=== PATIENT | female | born 1955 | race Native Hawaiian/Other Pacific Islander ===

== ENCOUNTER 2018-04-23 12:36 | Outpatient (CLI) | payer OTHER | END 2018-04-23 20:42 | disposition home or self-care (01) | LOC: US 12:36 | DX: R60.0 Localized edema (principal); M54.12 Radiculopathy, cervical region ==

== ENCOUNTER 2018-07-16 10:07 | Outpatient (CLI) | payer OTHER | END 2018-07-16 19:45 | disposition home or self-care (01) | LOC: RAD 10:07 | DX: M54.5 Low back pain (principal) ==

== ENCOUNTER 2018-09-05 16:59 | Outpatient (CLI) | payer OTHER | END 2018-09-05 21:56 | disposition home or self-care (01) | LOC: RAD 16:59 | DX: M06.4 Inflammatory polyarthropathy (principal); M25.551 Pain in right hip; M25.552 Pain in left hip ==

== ENCOUNTER 2019-03-27 18:31 | Emergency (ER) | payer OTHER ==
[~2019-03-27] VITALS: Ht 170.2 cm; Wt 85.7 kg
[2019-03-27 19:29] LABS: PLATELET COUNT 254 K/uL (152-353)
[2019-03-27 20:20] LABS: POTASSIUM 3.8 mmol/L (3.6-5.2)
[2019-03-27 23:30] VITALS: BP 138/92; TEMP 98.1
== END 2019-03-27 23:40 | disposition home or self-care (01) ==
LOC: ED 18:31
PROVIDERS: Emergency Medicine Emergency Medical Services
DX: A04.5 Campylobacter enteritis (principal); R19.7 Diarrhea, unspecified; R10.30 Lower abdominal pain, unspecified
CPT/HCPCS: 80053; 83630; 85027; 87015; 87045; 87899; 99283; Q9963

== ENCOUNTER 2019-09-11 17:52 | Emergency (ER) | payer OTHER ==
[~2019-09-11] VITALS: Ht 170.2 cm; Wt 87.5 kg
[2019-09-11 19:12] LABS: PLATELET COUNT 233 K/uL (152-353)
[2019-09-11 19:17] LABS: POTASSIUM 3.8 mmol/L (3.6-5.2)
[2019-09-11 20:20] VITALS: BP 147/67; TEMP 99
== END 2019-09-11 20:20 | disposition home or self-care (01) ==
LOC: ED 17:52
PROVIDERS: Emergency Medicine
DX: S22.31XA Fracture of one rib, right side, initial encounter for closed fracture (principal); S20.211A Contusion of right front wall of thorax, initial encounter; W17.89XA Other fall from one level to another, initial encounter; Y92.098 Other place in other non-institutional residence as the place of occurrence of the external cause
CPT/HCPCS: 36415; 80053; 82550; 82553; 84484; 85027; 93005; 99283

== ENCOUNTER 2020-04-30 07:34 | Outpatient (CLI) | payer OTHER ==
[~2020-04-30] VITALS: Ht 170.2 cm; Wt 92.1 kg
== END 2020-04-30 21:46 | disposition home or self-care (01) ==
LOC: NM 07:34
DX: R07.89 Other chest pain (principal)
CPT/HCPCS: A9500; J2785

== ENCOUNTER 2020-07-17 09:58 | Outpatient (CLI) | payer OTHER | END 2020-07-17 19:29 | disposition home or self-care (01) | LOC: US 09:58 | PROVIDERS: ATTEND Nurse Practitioner Family | DX: N63.0 Unspecified lump in unspecified breast (principal) ==

== ENCOUNTER 2020-07-31 07:36 | Outpatient (CLI) | payer OTHER | END 2020-07-31 18:53 | disposition home or self-care (01) | LOC: RAD 07:36 | PROVIDERS: ATTEND Nurse Practitioner Family | DX: N63.20 Unspecified lump in the left breast, unspecified quadrant (principal) ==

== ENCOUNTER 2020-08-06 16:14 | Outpatient (CLI) | payer OTHER ==
[2020-08-06 17:00] LABS: PLATELET COUNT 233 K/uL (152-353)
[2020-08-06 17:15] LABS: POTASSIUM 4.5 mmol/L (3.6-5.2)
== END 2020-08-06 21:32 | disposition home or self-care (01) ==
LOC: LABW 16:14
PROVIDERS: ATTEND Surgery
DX: N63.20 Unspecified lump in the left breast, unspecified quadrant (principal); Z79.899 Other long term (current) drug therapy
CPT/HCPCS: 36415; 80053; 85027

== ENCOUNTER 2020-08-12 14:56 | Outpatient (CLI) | payer OTHER | END 2020-08-12 22:17 | disposition home or self-care (01) | LOC: MAMMO 14:56 | PROVIDERS: ATTEND Nurse Practitioner Family | DX: N63.20 Unspecified lump in the left breast, unspecified quadrant (principal); N64.59 Other signs and symptoms in breast ==

== ENCOUNTER 2020-08-19 17:16 | Emergency (ER) | payer OTHER ==
[~2020-08-19] VITALS: Ht 170.2 cm; Wt 92.1 kg
[2020-08-19 17:59] LABS: PLATELET COUNT 267 K/uL (152-353)
[2020-08-19 18:12] LABS: POTASSIUM 3.9 mmol/L (3.6-5.2); SODIUM 139 mmol/L (136-145)
[2020-08-19 21:30] VITALS: BP 99/45; TEMP 98.3
== END 2020-08-19 21:30 | disposition home or self-care (01) ==
LOC: ED 17:16
PROVIDERS: Emergency Medicine Emergency Medical Services
DX: R07.89 Other chest pain (principal); Z98.890 Other specified postprocedural states
CPT/HCPCS: 80053; 83880; 84484; 85027; 85379; 85610; 87040; 93005; 96360; 96361; 96365; 96372; 96375; 96376; 99284; J0696; J1200; J1650; J2270; J2405; J2930; J3490

== ENCOUNTER 2020-12-12 12:53 | Emergency (ER) | payer OTHER ==
[~2020-12-12] VITALS: Ht 170.2 cm; Wt 98.0 kg
[2020-12-12 12:56] VITALS: TEMP 98.4
[2020-12-12 13:23] LABS: PLATELET COUNT 230 K/uL (152-353)
[2020-12-12 13:38] LABS: POTASSIUM 4.4 mmol/L (3.6-5.2); SODIUM 141 mmol/L (136-145)
[2020-12-12 13:42] LABS: PARTIAL THROMBOPLASTIN TIME 25.5 SECONDS (24.5-33.6)
[2020-12-12 15:07] VITALS: BP 157/63
== END 2020-12-12 15:07 | disposition home or self-care (01) ==
LOC: ED 12:53
PROVIDERS: Hospitalist
DX: R07.89 Other chest pain (principal); G62.89 Other specified polyneuropathies; R06.02 Shortness of breath
CPT/HCPCS: 80053; 82550; 83880; 84484; 85027; 85610; 85730; 93005; 99283

== ENCOUNTER 2021-01-27 14:27 | Outpatient (CLI) | payer OTHER | END 2021-01-27 21:13 | disposition home or self-care (01) | LOC: US 14:27 | PROVIDERS: ATTEND Internal Medicine | DX: M79.605 Pain in left leg (principal); M79.604 Pain in right leg; I73.9 Peripheral vascular disease, unspecified ==

== ENCOUNTER 2021-03-03 08:16 | Outpatient (CLI) | payer OTHER | END 2021-03-03 22:09 | disposition home or self-care (01) | LOC: RESP 08:16 | PROVIDERS: ATTEND Internal Medicine Cardiovascular Disease | DX: R06.09 Other forms of dyspnea (principal); I73.9 Peripheral vascular disease, unspecified ==

== ENCOUNTER 2021-03-11 07:37 | Outpatient (CLI) | payer OTHER ==
[~2021-03-11] VITALS: Ht 167.6 cm; Wt 102.1 kg
== END 2021-03-11 19:05 | disposition home or self-care (01) ==
LOC: NM 07:37
PROVIDERS: ATTEND Internal Medicine Cardiovascular Disease
DX: I25.118 Atherosclerotic heart disease of native coronary artery with other forms of angina pectoris (principal)
CPT/HCPCS: A9500; J2785

== ENCOUNTER 2021-06-30 13:32 | Outpatient (CLI) | payer OTHER | END 2021-06-30 22:38 | disposition home or self-care (01) | LOC: US 13:32 | PROVIDERS: ATTEND Nurse Practitioner | DX: M79.662 Pain in left lower leg (principal) ==

== ENCOUNTER 2021-09-19 07:36 | Emergency (ER) | payer OTHER ==
[~2021-09-19] VITALS: Ht 170.2 cm; Wt 99.8 kg
[2021-09-19 07:44] VITALS: TEMP 100
[2021-09-19 08:50] LABS: PLATELET COUNT 191 K/uL (152-353)
[2021-09-19 09:03] LABS: POTASSIUM 3.8 mmol/L (3.6-5.2)
[2021-09-19 10:00] VITALS: BP 122/64
== END 2021-09-19 10:10 | disposition home or self-care (01) ==
LOC: ED 07:36
PROVIDERS: Emergency Medicine Emergency Medical Services
DX: R07.89 Other chest pain (principal); J20.9 Acute bronchitis, unspecified
CPT/HCPCS: 80053; 84484; 85027; 93005; 99284

== ENCOUNTER 2021-09-22 17:18 | Emergency (ER) | payer OTHER ==
[~2021-09-22] VITALS: Ht 170.2 cm; Wt 99.8 kg
[2021-09-22 18:43] VITALS: BP 116/71; TEMP 99.1
== END 2021-09-22 18:43 | disposition home or self-care (01) ==
LOC: ED 17:18
DX: J06.9 Acute upper respiratory infection, unspecified (principal); J40 Bronchitis, not specified as acute or chronic
CPT/HCPCS: 87502; 87651; 99283

== ENCOUNTER 2021-09-27 18:23 | Emergency (ER) | payer OTHER ==
[~2021-09-27] VITALS: Ht 170.2 cm; Wt 93.0 kg
[2021-09-27 19:08] LABS: PLATELET COUNT 260 K/uL (152-353)
[2021-09-27 19:16] LABS: POTASSIUM 3.6 mmol/L (3.6-5.2)
[2021-09-27 19:23] LABS: PARTIAL THROMBOPLASTIN TIME 25.9 SECONDS (24.5-33.6)
[2021-09-27 20:32] VITALS: BP 148/76; TEMP 98.5
== END 2021-09-27 20:32 | disposition home or self-care (01) ==
LOC: ED 18:23
PROVIDERS: Hospitalist
DX: J18.9 Pneumonia, unspecified organism (principal); Z20.822 Contact with and (suspected) exposure to COVID-19
CPT/HCPCS: 36415; 80053; 82550; 83880; 84484; 85027; 85610; 85730; 87635; 93005; 96365; 96375; 99284; J0696; J2930; U0003

== ENCOUNTER 2021-11-20 11:07 | Outpatient (CLI) | payer OTHER | END 2021-11-20 19:43 | disposition home or self-care (01) | LOC: LAB 11:07 | PROVIDERS: ATTEND Internal Medicine | DX: R05.8 Other specified cough (principal) | CPT/HCPCS: 87070; 87205 ==

== ENCOUNTER 2022-02-04 11:06 | Outpatient (CLI) | payer OTHER ==
[~2022-02-04 11:06] MED LIST: AMOX875T8 PO
[2022-02-04 11:19] LABS: PLATELET COUNT 237 K/uL (152-353)
[2022-02-04 11:25] LABS: POTASSIUM 4.4 mmol/L (3.6-5.2)
[2022-02-04 11:53] LABS: PARTIAL THROMBOPLASTIN TIME 26.6 SECONDS (24.5-33.6)
== END 2022-02-04 20:28 | disposition home or self-care (01) ==
LOC: LABW 11:06
PROVIDERS: ATTEND Internal Medicine Cardiovascular Disease
DX: R07.89 Other chest pain (principal); Z79.01 Long term (current) use of anticoagulants
CPT/HCPCS: 36415; 80048; 85027; 85610; 85730

== ENCOUNTER 2022-06-07 13:54 | Emergency (ER) | payer OTHER ==
[~2022-06-07] VITALS: Ht 170.2 cm; Wt 86.6 kg
[2022-06-07 14:00] VITALS: TEMP 98
[2022-06-07 14:20] LABS: PLATELET COUNT 243 K/uL (152-353)
[2022-06-07 14:38] LABS: POTASSIUM 3.4 mmol/L (3.6-5.2)
[2022-06-07 14:45] VITALS: BP 110/88
== END 2022-06-07 14:45 | disposition home or self-care (01) ==
LOC: ED 13:54
PROVIDERS: Family Medicine
DX: I63.89 Other cerebral infarction (principal)
CPT/HCPCS: 80053; 84484; 85027; 85610; 85730; 93005; 96365; 96375; 99285; J2405; J2997

== ENCOUNTER → 2022-08-10 | Emergency (ER) | payer OTHER ==
[~2022-08-10] VITALS: Ht 170.2 cm; Wt 90.3 kg
[2022-08-10 18:30] VITALS: TEMP 98
[2022-08-10 19:31] LABS: PLATELET COUNT 244 K/uL (152-353)
[2022-08-10 19:41] LABS: POTASSIUM 3.9 mmol/L (3.6-5.2)
[2022-08-10 21:28] VITALS: BP 154/78
== END ==
LOC: ED 18:30
PROVIDERS: Family Medicine
DX: I10 Essential (primary) hypertension (principal); H60.8X1 Other otitis externa, right ear; S09.8XXA Other specified injuries of head, initial encounter; I69.898 Other sequelae of other cerebrovascular disease; X58.XXXA Exposure to other specified factors, initial encounter; Y92.89 Other specified places as the place of occurrence of the external cause; Z20.822 Contact with and (suspected) exposure to COVID-19; Z79.2 Long term (current) use of antibiotics; Z51.81 Encounter for therapeutic drug level monitoring; F17.210 Nicotine dependence, cigarettes, uncomplicated
CPT/HCPCS: 36415; 80053; 80307; 81002; 83880; 85027; 87502; 87635; 99283; U0003

== ENCOUNTER 2022-08-25 12:50 | Outpatient (CLI) | payer OTHER | END 2022-08-25 18:52 | disposition home or self-care (01) | LOC: MAMMO 12:50 | PROVIDERS: ATTEND Nurse Practitioner Family | DX: N63.20 Unspecified lump in the left breast, unspecified quadrant (principal); N64.4 Mastodynia; I63.9 Cerebral infarction, unspecified; R51.9 Headache, unspecified; R42 Dizziness and giddiness | CPT/HCPCS: G0279 ==

== ENCOUNTER 2022-10-10 14:14 | Outpatient (CLI) | payer OTHER | END 2022-10-10 19:10 | disposition home or self-care (01) | LOC: US 14:14 | PROVIDERS: ATTEND Internal Medicine | DX: I25.10 Atherosclerotic heart disease of native coronary artery without angina pectoris (principal); I63.9 Cerebral infarction, unspecified; I10 Essential (primary) hypertension ==

== ENCOUNTER 2022-10-19 15:21 | Outpatient (CLI) | payer OTHER | END 2022-10-19 19:33 | disposition home or self-care (01) | LOC: US 15:21 | PROVIDERS: ATTEND Internal Medicine | DX: R60.0 Localized edema (principal); G62.89 Other specified polyneuropathies; I73.9 Peripheral vascular disease, unspecified ==